=== PATIENT | male | born 1975 | race Caucasian/White ===

== ENCOUNTER → 2019-05-02 17:12 | Outpatient (CLI) | payer OTHER, SELFPAY ==
--- NOTE | 2019-05-02 17:20 | US_ITS ---
STUDY: SCROTUM ULTRASOUND REASON FOR EXAM: Male, 43 years old. Scrotal mass. TECHNIQUE: Ultrasound evaluation of the scrotum was performed with color Doppler and static myles-scale imaging. COMPARISON: None. FINDINGS: RIGHT TESTICLE INTRATESTICULAR: There is a normal size of the right testicle. The right testicle measures 4.8 x 2.8 x 2.5 cm. There is a homogenous echotexture. There is normal arterial and normal venous vascularity. There is no demonstrated right testicular mass or cyst. EXTRATESTICULAR: The epididymis is normal in size. The epididymis head measures 0.8 x 1.2 x 1.4 cm. There is normal vascularity of the epididymis. 3 small cysts of the right epididymal head the largest of which is 3.5 x 2.5 mm. There is a large hydrocele. There is no demonstrated varicocele. There is no demonstrated extratesticular mass or cyst. LEFT TESTICLE INTRATESTICULAR: There is a normal size of the left testicle. The left testicle measures 4.8 x 2.8 x 2.4 cm. There is a homogenous echotexture. There is normal arterial and normal venous vascularity. There is no demonstrated left testicular mass or cyst. EXTRATESTICULAR: The epididymis is 1.1 x 1.2 x 1.3 The epididymis head measures cm. There is normal vascularity of the epididymis. 6.8 x 4.3 x 2.6 cm cyst and a 6.4 x 4.9 x 3.3 cm cyst of the left epididymal head. There is large hydrocele with some limited septations. There is no demonstrated varicocele. There is no demonstrated extratesticular mass or cyst. US/Testicular with Arterial Flow IMPRESSION: Normal size testicles bilaterally with normal and symmetric Doppler flow. Normal size epididymides multiple small cysts bilaterally as described above. Normal Doppler flow. Bilateral large hydroceles. Partially septated on the left. Electronically Signed: Katherine Mclaughlin MD at 19:36 EDT , Service support ,
== END ==
PROVIDERS: Visit Provider Nurse Practitioner Adult Health
DX: N50.9 Disorder of male genital organs, unspecified (principal); N43.3 Hydrocele, unspecified
CPT/HCPCS: 76870; 93976

== ENCOUNTER 2019-05-15 08:45 | Day surgery (SDC) | payer OTHER, SELFPAY ==
[2019-05-15 09:13] VITALS: BP 117/95; PULSE 54; RESP 16; TEMP 36.6; O2SAT 99; BMI 29.6
[2019-05-15] MEDS: Lactated Ringers 1,000 ML 100 ML IV (09:31)
--- NOTE | 2019-05-15 12:23 | PCM.DC.URO ---
Discharge Diet: Light diet - advance as tolerated Discharge Activity: Return to Normal Activity Call your doctor if your incision/area has: Sudden Increased Bleeding Catheter: Ma to leg bag, Ma to large bag Drain: [place] Allergies/Adverse Reactions: Allergies No Known Allergies Allergy (Verified 05/15/19 09:01) Medications to take at Discharge NK 05/14/19 Primary Care Physician: Care Physician,No Primary [Primary Care Provider] - Test Results: Test results from this visit will be discussed in further detail at your follow-up appointment, if applicable. Please Follow Up With: Arun Reynolds MD When: please call to make an appointment- 10 days
--- NOTE | 2019-05-15 12:26 | PCM.OPRPT ---
Report of Operation Date of Procedure: 05/15/19 Pre-Operative Diagnosis: Bulbar urethral stricture Post-Operative Diagnosis: Same Surgery/Procedure Performed:: Cystoscopy, rectal vision internal urethrotomy and placement of a Connolly catheter dilation the meatus. Description of Surgical Findings:: 43-year-old male who was found to have a dense urethral stricture in the bulbar urethra with a pinpoint opening on cystoscopy in the office he now presents to the operating room for a direct vision internal urethrotomy to cut open the stricture in the mid ureter urethra it in the bulbar urethra patient understands it is possible that he could scar down again that this could be a temporary fix he we talked about the success rate of the procedure he also need a catheter to go home for about 10 days. We did talk about the other option of management would be a referral to a tertiary care center for reconstruction but the patient does not want to be off work that long and would prefer to go with a DVIU and understands the limitations of the procedure and the risk that the scar tissue may come back. 43-year-old male taken back to the operating room at the smooth induction of anesthesia he was placed in dorsolithotomy position the meatus was dilated, I went into the urethra with a 21 Hungarian rigid cystoscopy cystourethroscope and a urethrotome, I then identified the stricture a photograph was taken of this and printed I then used a cold Vale knife to cut the stricture open using direct vision cutting of the stricture at the 12 o'clock position once the cut stricture was cut open and taken of the picture to demonstrate the open channel went inside the bladder the prostate was normal the bladder was inspected there is no tumors or stones within the bladder the mucosa was normal. I then placed lidocaine jelly into the urethra and then we placed a 20 Hungarian catheter into the bladder without any difficulties will patient anesthetic was reversed catheter was placed in the drainage bag and he will go home with a catheter for about 10 days and then will remove the catheter. The stricture was cut open successfully under anesthesia. Type of Anesthesia:: General Drains: connolly 20 fr - Admit VTE Documentation VTE Present on Admission: No VTE Mechan Device Prophylaxis: SCD's
[2019-05-15 12:38] VITALS: BP 114/67; BP 117/97; PULSE 54; RESP 16; TEMP 36.1; O2SAT 98
[2019-05-15 12:45] VITALS: BP 105/82; BP 117/97; PULSE 55; RESP 16; O2SAT 98
[2019-05-15 13:00] VITALS: BP 100/69; BP 117/97; PULSE 54; RESP 16; O2SAT 99
[2019-05-15 13:08] VITALS: BP 111/72; BP 117/97; PULSE 55; RESP 16; TEMP 36.2; O2SAT 98
[2019-05-15 14:04] VITALS: BP 117/97
== END 2019-05-15 14:06 | disposition home or self-care (01) ==
LOC: SDC 08:45 → AC 08:47
PROVIDERS: Referring Provider Urology; Visit Provider Urology
PROC: 0T7D8ZZ Dilation of Urethra, Via Natural or Artificial Opening Endoscopic (ICD-10-PCS; CPT 52276; principal; 2019-05-15 10:45)
DX: N35.011 Post-traumatic bulbous urethral stricture (principal); R39.12 Poor urinary stream; R30.0 Dysuria; Z87.891 Personal history of nicotine dependence
CPT/HCPCS: 52276; J7120; C1769; J2405